=== PATIENT | male | born 1980 | race African-American/Black ===

== ENCOUNTER 2017-04-09 10:29 | Emergency (ER) | payer OTHER ==
[~2017-04-09] VITALS: Ht 188 cm; Wt 90.7 kg
--- NOTE | 2017-04-09 10:29 | NUR ---
Patient is awake, extremely agiated, throwing objects to staff, respiration: non labored, does not follow commands or answer questions appropriately, unable to do safety contact with patient@this time, MD is aware. Hard restraints x4 initiated with MD at bedside. Farrah LAO was called.
[2017-04-09] MEDS ORDERED: diphenhydrAMINE 50 MG/1 ML VIAL ONE (10:51)
[2017-04-09] MEDS ORDERED: HALOPERIDOL LACTATE 5 MG/1 ML VIAL ONE (10:51)
[2017-04-09] MEDS ORDERED: LORAZEPAM 2 MG/1 ML VIAL ONE (10:51)
[2017-04-09] MEDS ORDERED: diphenhydrAMINE 50 MG/1 ML VIAL IM ONE (11:00)
[2017-04-09] MEDS ORDERED: IV NS 1000 ML 1,000 ML IV ONE (11:00)
[2017-04-09] MEDS ORDERED: HALOPERIDOL LACTATE 5 MG/1 ML VIAL IM ONE (11:00)
[2017-04-09] MEDS ORDERED: LORAZEPAM 2 MG/1 ML VIAL IM ONE (11:00)
[2017-04-09 11:05] LABS: BASOPHILS # (AUTO) 0.1 K/uL (0.0-8.0); BASOPHILS % (AUTO) 1.2 % (0.0-2.0); EOSINOPHILS % (AUTO) 0.8 % (0.0-7.0); HEMATOCRIT 37.9 % (36.7-47.1); HEMOGLOBIN 12.7 g/dL (12.5-16.3); LYMPHOCYTES # (AUTO) 1.4 K/uL (20.0-40.0); LYMPHOCYTES % (AUTO) 26.6 % (20.5-51.5); MEAN CORPUSCULAR HEMOGLOBIN 30.1 uug (23.8-33.4); MEAN CORPUSCULAR HGB CONC 34 g/dL (32.5-36.3); MEAN CORPUSCULAR VOLUME 89.4 fL (73.0-96.2); MONOCYTES # (AUTO) 0.5 K/uL (2.0-10.0); MONOCYTES % (AUTO) 10.2 % (0.0-11.0); NEUTROPHILS # (AUTO) 3.2 K/uL (1.8-8.9); NEUTROPHILS % (AUTO) 61.2 % (38.5-71.5); PLATELET COUNT (AUTO) 269 K/uL (152-348); RED BLOOD CELL COUNT(AUTO) 4.23 MIL/uL (4.06-5.63); WHITE BLOOD COUNT (AUTO) 5.3 K/uL (3.6-10.2)
--- NOTE | 2017-04-09 11:16 | NUR ---
Patient is AOx4, behavior is appropriate, calm and at baseline (per girlfriend). Chari (the girlfriend) says that she is willing to take him home after discharge. Patient is refusing all tests at this time, MD notified.
[2017-04-09 11:20] LABS: CARBON DIOXIDE 28 mmol/L (21-32); CHLORIDE 105 mmol/L (98-107); CREATININE 1.2 mg/dL (0.6-1.3); GLUCOSE 100 mg/dL (74-106); POTASSIUM 3.7 mmol/L (3.5-5.1); UREA NITROGEN, BLOOD 7 mg/dL (7-18)
--- NOTE | 2017-04-09 11:22 | NUR ---
Patient wants psych prescription from our ER doctor, Dr Dos Santos notified.
[2017-04-09 11:25] LABS: ETHANOL < 3 MG/DL (0-0)
[2017-04-09 11:26] LABS: ALANINE AMINOTRANSFERASE 23 U/L (16-63); ALKALINE PHOSPHATASE 64 U/L (50-136); ASPARTATE AMINOTRANSFERASE 21 U/L (15-37); BILIRUBIN,DIRECT 0.2 mg/dL (0.0-0.2); TOTAL PROTEIN, SERUM 7.5 g/dL (6.4-8.2)
[2017-04-09 11:27] LABS: ACETAMINOPHEN < 2.0 ug/mL (10-30)
== END 2017-04-09 11:48 | disposition left against medical advice (07) ==
LOC: ER 10:31
DX: R41.82 Altered mental status, unspecified (principal); F29 Unspecified psychosis not due to a substance or known physiological condition
CPT/HCPCS: 36415; 80048; 80076; 82550; 84484; 85025; 85610; 93005; 96372 ×3; 99285; A4663; G0480 ×2; G0481; J1200; J1630; J2060; J7030; 70030-TC